=== PATIENT | female | born 1940 | race Hispanic/Latino ===

== ENCOUNTER 2018-07-20 17:13 | Inpatient (IN) | payer MEDICARE ==
[2018-07-20] MEDS ORDERED: HYDROcodone/Acetaminophen 10/325 mg Tablet PO PRN (17:43)
[2018-07-20] MEDS ORDERED: Ondansetron ODT 4 MG TAB PO PRN (17:48)
[2018-07-20] MEDS ORDERED: Guaifenesin DM 100-10/5 ML UDCUP PO PRN (17:48)
[2018-07-20] MEDS ORDERED: Zolpidem Tartrate 5 MG TAB PO PRN (17:48)
[2018-07-20] MEDS ORDERED: Loratadine 10 MG TAB PO PRN (17:48)
[2018-07-20] MEDS ORDERED: Polyethylene Glycol 3350 17 GM Packet PO PRN (17:54)
[2018-07-20] MEDS: HYDROcodone/Acetaminophen 10/325 mg Tablet PO PRN (18:15)
[2018-07-20] MEDS: Multivitamin W/ Minerals 1 TAB PO SCH (20:22)
[2018-07-20] MEDS: Docusate 100 MG CAP PO SCH (20:22)
[2018-07-20] MEDS: Melatonin 3 MG TAB PO SCH (20:22)
--- NOTE | 2018-07-20 23:43 | HP ---
DATE OF SERVICE: 07/20/2018 CHIEF COMPLAINT: Status post left knee replacement. HISTORY OF PRESENT ILLNESS: The patient is a 78-year-old female with a past medical history of diabetes, hypertension, hyperlipidemia with hypertriglyceridemia, hypothyroidism, glaucoma, and osteoarthritis, who underwent left knee replacement last week at the [facility] with Dr. Herron. The patient has had a slow recovery, hampered by pain, and decreased mobility. There was sought that the patient was not safe to go home or to transfer on her own and therefore she is here for further physical therapy. The patient complains of left knee pain that worsened in the ambulance ride over here, but notes that her pain medicine usually helps control the pain. She also has chronic back pain and has a history of having three previous back surgeries. The patient states that she has had some swelling in her left lower extremity since the surgery, but has compression, KERRY hose on both legs and that has been helping. She was treated with antibiotics following surgery with Dr. Herron, so that this can be stopped and she is using aspirin for DVT prophylaxis following surgery. PAST MEDICAL HISTORY: 1. Diabetes, the most recent A1c is 6.4. 2. Hypertension. 3. Hyperlipidemia. 4. Hypertriglyceridemia. 5. Hypothyroidism. 6. Osteoarthritis. 7. Glaucoma. PAST SURGICAL HISTORY: 1. Three previous back surgeries. 2. Six total knee surgeries between both knees with the most recent being the left knee replacement. 3. Tonsillectomy. ALLERGIES: 1. ADHESIVE TAPE. 2. VALIUM. 3. SULFA. 4. IBUPROFEN. 5. CIPRO. FAMILY HISTORY: The patient is adopted and does not know her family history. SOCIAL HISTORY: Patient was a former smoker, but quit about 30 years ago and denies alcohol use. She is and has 2 children. MEDICATIONS: 1. Metformin 500 mg p.o. q.a.m. 2. Simvastatin 20 mg p.o. at bedtime. 3. Raloxifene 60 mg p.o. at bedtime. 4. Multivitamin p.o. daily. 5. Levothyroxine 112 mcg p.o. daily. 6. Irbesartan 300 mg p.o. daily. 7. Fenofibrate 160 mg p.o. at bedtime. 8. Atenolol 25 mg p.o. daily. 9. ProAir inhaler 2 puffs q.4 hours p.r.n. shortness of breath. 10. Hydrocodone which is being given in the hospital, but I am unsure of the dose at this time. 11. Duloxetine 30 mg p.o. daily. REVIEW OF SYSTEMS: General: Negative for fever, chills, or night sweats. Vision. Negative for eye pain and redness. HEENT: Negative for sore throat, rhinorrhea, nasal congestion. Respiratory: Negative for cough, congestion, shortness of breath, and wheezing. Cardiovascular: Negative for chest pain, palpitations, orthopnea, and PND. Gastrointestinal: Negative for nausea, vomiting, and diarrhea, but patient does endorse constipation since her surgery. Genitourinary: Negative for dysuria and polyuria. Musculoskeletal: Positive for low back pain and left knee pain with decreased range of motion. Skin: Negative for rashes or lesions. Neurologic: Negative for syncope and seizure. Psychiatric: Negative for anxiety and depression. PHYSICAL EXAMINATION: VITAL SIGNS: Temperature 98.1, pulse 77, respiration rate 18, O2 sat 94% on room air, blood pressure 138/63. GENERAL: The patient is awake, alert, and oriented, in no acute distress. EYES: Pupils are equal, round, reactive to light and accommodation. Extraocular muscles are intact. HEENT: Oropharynx and nasopharynx are without erythema or exudate. NECK: Supple without lymphadenopathy, thyromegaly, or bruits. CARDIOVASCULAR: Regular rate and rhythm without murmurs, gallops, or rubs. LUNGS: Clear to auscultation bilaterally without wheezing or rhonchi. ABDOMEN: Soft, nontender, nondistended with bowel sounds present. EXTREMITIES: There is no clubbing, cyanosis, but there is trace edema in bilateral feet. MUSCULOSKELETAL: Patient has an Chet bandage wrapped around her left knee, which is tender to palpation. NEUROLOGIC: Cranial nerves II through XII are grossly intact, sensation is within normal limits. PSYCHIATRIC: Patient displays an appropriate mood and affect during the exam. ASSESSMENT AND PLAN: Patient is a 78-year-old female who is at [facility] for rehabilitation following left knee replacement. 1. Osteoarthritis, status post left knee replacement: The patient will have PT and OT consults. We will continue hydrocodone for pain as well as her duloxetine, which is what she takes at home. Patient will use ice as needed and at this point in time, as of needs assistance and anytime she tries to get up. She is not yet able to bear weight on that leg due to pain. 2. Diabetes: We will continue her metformin and do Accu-Cheks every a.c. and at bedtime. 3. Hypertension: Continue home medications and monitor blood pressure. 4. Hyperthyroidism: Continue Synthroid. 5. Hyperlipidemia: We will continue her home statin and fenofibrate. 6. Patient is on aspirin per Dr. Herron for deep venous thrombosis prophylaxis following surgery. RIKI
[2018-07-21] MEDS: Levothyroxine Sodium 100 MCG TAB PO SCH (05:19)
[2018-07-21] MEDS: HYDROcodone/Acetaminophen 10/325 mg Tablet PO PRN ×4 (05:20→20:51)
[2018-07-21 05:56] LABS: #Basophils 0.1 thou/uL (0.0-0.2); #Eosinphils 0.3 thou/uL (0.0-0.7); #Lymphocytes 2.4 thou/uL (1.20-3.40); #Monocytes 0.9 thou/uL (0.11-0.59); %Eosinophils 4.2 % (0.0-10.0); %Lymphocytes 31.4 % (21.0-51.0); %Monocytes 12.1 % (0.0-10.0); %Neutrophils 51.2 % (42.0-75.0); Hemoglobin 9.6 g/dL (12.0-16.0); Mean Corpuscular HGB CONC 31.7 g/dL (32.0-36.0); Mean Corpuscular Hemoglobin 29.4 pg (27.0-31.0); Mean Corpuscular Volume 92.6 fL (78.0-98.0); Mean Platelet Volume 6.3 fL (7.4-10.4); Platelet Count 346 thou/uL (130-400); RBC Distribution Width 12.7 % (11.5-14.5); Red Blood Cell (RBC) Count 3.27 mill/uL (4.20-5.40); White Blood Cell (WBC) Count 7.7 thou/uL (4.8-10.8)
[2018-07-21 06:00] LABS: Anion Gap 11 mmol/L (10-20); BUN (Urea Nitrogen) 23 mg/dL (9.8-20.1); Calc. Creatinine Clearance 63 mL/min (70-130); Calcium 9.2 mg/dL (7.8-10.44); Carbon Dioxide 25 mmol/L (23-31); Chloride 106 mmol/L (98-107); Estimated GFR-MDRD 64; Glucose 105 mg/dL (83-110); Potassium 4.4 mmol/L (3.5-5.1); Sodium 138 mmol/L (136-145)
[2018-07-21] MEDS: Carvedilol 25 MG TAB PO SCH ×2 (07:40→16:48)
[2018-07-21] MEDS: metFORMIN XR 500 MG TAB PO SCH (07:40)
[2018-07-21] MEDS: Docusate 100 MG CAP PO SCH ×2 (08:53→20:51)
[2018-07-21] MEDS: Fenofibrate Nanocrystallized 145 MG TAB PO SCH (08:53)
[2018-07-21] MEDS: DULoxetine 30 MG CAP PO SCH (08:53)
--- NOTE | 2018-07-21 12:22 | PRG ---
DATE OF SERVICE: 07/21/2018 SUBJECTIVE: The patient is a 78-year-old female status post left knee replacement who was admitted last night for further therapy. The patient notes pain in her leg, but she was able to get up with PT and walk to the door and back. She is also trying to ambulate to the restroom instead of using a bedside commode. PHYSICAL EXAMINATION: VITAL SIGNS: Temperature 97.8, pulse 70, respiration rate 18, O2 sat 95% on room air, blood pressure 145/68. GENERAL: The patient is awake, alert, and oriented, in no acute distress. CARDIOVASCULAR: Regular rate and rhythm without murmurs, gallops, or rubs. LUNGS: Clear to auscultation bilaterally without wheezing or rhonchi. MUSCULOSKELETAL: The left leg has an Chet wrap in place. PSYCHIATRIC: The patient displays appropriate mood and affect. LABORATORY: 1. CBC: WBCs 7.7, hemoglobin 9.6, hematocrit 30.3, platelet count 346. 2. BMP: Sodium 138, potassium 4.4, chloride 106, bicarb 25, BUN 23, creatinine 0.86, glucose 105, calcium 9.2. 3. Accu-Cheks 143, 104, 129. ASSESSMENT AND PLAN: The patient is a 78-year-old female status post left knee replacement. 1. Osteoarthritis status post left knee replacement: We will continue [place] for pain. The tramadol is not helping at all and she is allergic to NSAIDs. She will continue working with PT and OT and use ice packs as needed. 2. Anemia, likely acute secondary to blood loss from recent surgery. We will trend her blood counts and replace with iron. 3. Hypertension: Patient's blood pressure is mildly elevated, but this is likely secondary to pain. We will continue current medications and monitor. 4. Diabetes: Blood sugars have been well controlled. We will stop Accu-Cheks every a.c. and at bedtime. 5. Dr. Herron has the patient on aspirin for DVT prophylaxis following surgery. RIKI
[2018-07-21] MEDS: Calcium Carbonate + Vit D 1 TAB PO SCH (16:48)
[2018-07-21] MEDS: Simvastatin 10 MG TAB PO SCH (16:48)
[2018-07-21] MEDS: Melatonin 3 MG TAB PO SCH (20:51)
[2018-07-21] MEDS: Multivitamin W/ Minerals 1 TAB PO SCH (20:51)
[2018-07-22] MEDS: Levothyroxine Sodium 100 MCG TAB PO SCH (05:56)
[2018-07-22] MEDS: HYDROcodone/Acetaminophen 10/325 mg Tablet PO PRN ×4 (06:22→20:41)
[2018-07-22] MEDS: DULoxetine 30 MG CAP PO SCH (09:28)
[2018-07-22] MEDS: metFORMIN XR 500 MG TAB PO SCH (09:29)
[2018-07-22] MEDS: Carvedilol 25 MG TAB PO SCH ×2 (09:29→17:15)
[2018-07-22] MEDS: Fenofibrate Nanocrystallized 145 MG TAB PO SCH (09:29)
[2018-07-22] MEDS: traMADol HCl 50 MG TAB PO PRN ×2 (09:29→17:12)
[2018-07-22] MEDS: Docusate 100 MG CAP PO SCH ×2 (09:30→20:41)
[2018-07-22 14:34] VITALS: BMI 29.8
--- NOTE | 2018-07-22 17:10 | PRG ---
DATE OF SERVICE: 07/22/2018 SUBJECTIVE: The patient is a 78-year-old female who is at [facility] for rehabilita tion following a left knee replacement. The patient was moved to room since yesterday. She is start ing to stand with physical therapy and is about to start walking with them during my visit. She note s that the [place] is helping with pain and she has tramadol for breakthrough though she says it is not helping as well as she would like. OBJECTIVE: VITAL SIGNS: Temperature 97.5, pulse 79, respiration rate 18, O2 sat 93% on room air, blood pressure 136/62. GENERAL: The patient is awake, alert, and oriented, in no acute distress. CARDIOVASCULAR: Regular rate and rhythm without murmurs, gallops, or rubs. LUNGS: Clear to auscultation bilaterally without wheezing or rhonchi. ABDOMEN: Soft, nontender, nondistended. Bowel sounds present. EXTREMITIES: There is no clubbing or cyanosis. The patient does have some trace lower extremity byron ma and bandages in place on the left knee and she has KERRY hose on both legs. ASSESSMENT AND PLAN: 1. Osteoarthritis, status post left knee replacement: We will continue PT and OT. We will add Tyle nol to be taken along with her tramadol in between her [place] doses. We will make certain the patient is not exceeding 3 grams of Tylenol in a day. 2. Diabetes: Blood sugars have been stable. We will not continue Accu-Cheks at this time. 3. Anemia: We will repeat labs next week. 4. Hypertension: Continue current meds. Blood pressure has been well controlled. 5. Hypothyroidism: Continue supplementation. 6. The patient remains on aspirin for deep vein thrombosis prophylaxis.
[2018-07-22] MEDS: Acetaminophen 500 MG TAB PO PRN (17:12)
[2018-07-22] MEDS: Simvastatin 10 MG TAB PO SCH (17:13)
[2018-07-22] MEDS: Calcium Carbonate + Vit D 1 TAB PO SCH (17:13)
[2018-07-22] MEDS: Melatonin 3 MG TAB PO SCH (20:41)
[2018-07-22] MEDS: Multivitamin W/ Minerals 1 TAB PO SCH (20:41)
[2018-07-23] MEDS: HYDROcodone/Acetaminophen 10/325 mg Tablet PO PRN ×4 (02:06→18:27)
[2018-07-23] MEDS: Levothyroxine Sodium 100 MCG TAB PO SCH (05:43)
[2018-07-23] MEDS: metFORMIN XR 500 MG TAB PO SCH (08:19)
[2018-07-23] MEDS: Carvedilol 25 MG TAB PO SCH ×2 (08:19→17:05)
[2018-07-23] MEDS: DULoxetine 30 MG CAP PO SCH (08:21)
[2018-07-23] MEDS: Docusate 100 MG CAP PO SCH ×2 (08:23→21:05)
[2018-07-23] MEDS: Fenofibrate Nanocrystallized 145 MG TAB PO SCH (08:23)
[2018-07-23] MEDS: traMADol HCl 50 MG TAB PO PRN ×2 (12:30→21:05)
[2018-07-23] MEDS: Acetaminophen 500 MG TAB PO PRN ×2 (12:30→21:05)
[2018-07-23] MEDS: Simvastatin 10 MG TAB PO SCH (17:11)
[2018-07-23] MEDS: Calcium Carbonate + Vit D 1 TAB PO SCH (17:12)
[2018-07-23] MEDS: Melatonin 3 MG TAB PO SCH (21:05)
[2018-07-23] MEDS: Multivitamin W/ Minerals 1 TAB PO SCH (21:05)
[2018-07-24] MEDS: HYDROcodone/Acetaminophen 10/325 mg Tablet PO PRN ×3 (02:26→20:36)
[2018-07-24] MEDS: Levothyroxine Sodium 100 MCG TAB PO SCH (05:44)
[2018-07-24] MEDS: Carvedilol 25 MG TAB PO SCH ×2 (08:15→17:02)
[2018-07-24] MEDS: DULoxetine 30 MG CAP PO SCH (08:15)
[2018-07-24] MEDS: metFORMIN XR 500 MG TAB PO SCH (08:15)
[2018-07-24] MEDS: Fenofibrate Nanocrystallized 145 MG TAB PO SCH (08:15)
[2018-07-24] MEDS: Docusate 100 MG CAP PO SCH ×2 (08:15→20:36)
[2018-07-24] MEDS: traMADol HCl 50 MG TAB PO PRN (14:54)
[2018-07-24] MEDS: Acetaminophen 500 MG TAB PO PRN (14:54)
[2018-07-24] MEDS: Calcium Carbonate + Vit D 1 TAB PO SCH (17:02)
[2018-07-24] MEDS: Simvastatin 10 MG TAB PO SCH (17:03)
--- NOTE | 2018-07-24 17:17 | PRG ---
DATE OF SERVICE: 07/24/2018 SUBJECTIVE: The patient is a 78-year-old female status post left knee replacement, who is at [facility]. The patient has been ambulating from the bed to the bathroom with assistan ce of nursing notes that she is taking very small steps. Patient thinks that her pain is a little bi t better controlled over the weekend and denies complaints. OBJECTIVE: VITAL SIGNS: Temperature 98.0, pulse 76, respiration rate 18, O2 sat 96% on room air, and blood pres sure 154/74. GENERAL: The patient is awake, alert, and oriented, in no acute distress. CARDIOVASCULAR: Regular rate and rhythm without murmurs, gallops, or rubs. LUNGS: Clear to auscultation bilaterally without wheezing or rhonchi. ABDOMEN: Soft, nontender, nondistended with bowel sounds present. EXTREMITIES: There is no clubbing or cyanosis. The patient has KERRY hose in place in the lower extre mities with the left lower extremity swelling improved from Wednesday. She has a bandage in place over the top of her left knee incision and the KERRY hose cover that. PSYCHIATRIC: The patient displays an appropriate mood and affect. ASSESSMENT AND PLAN: 1. Osteoarthritis, status post left knee replacement: Patient will resume therapy tomorrow. We dis cussed pain control and when it is appropriate to take her pain medication. The patient is intereste d in trying to wean off of the pain medicine a little bit, but we also noted that we want her to be a ble to work with therapy and not let her pain gets to be too severe. 2. Anemia, likely secondary to recent surgery. We will repeat the patient's hemoglobin in 2 days. 3. Hypertension: The patient's blood pressure has been a little bit elevated in the past 24 hours w ith systolics in the 150s, but for the most part it is under control in the previous days. We will c ontinue to monitor and adjust medications as needed. 4. Hypothyroidism: Continue supplementation. 5. The patient's orthopedic surgeon has her on a full strength aspirin for deep vein thrombosis prop hylaxis.
[2018-07-24] MEDS: Multivitamin W/ Minerals 1 TAB PO SCH (20:36)
[2018-07-24] MEDS: Melatonin 3 MG TAB PO SCH (20:36)
[2018-07-25] MEDS: Acetaminophen 500 MG TAB PO PRN (03:05)
[2018-07-25] MEDS: traMADol HCl 50 MG TAB PO PRN ×2 (03:05→15:24)
[2018-07-25] MEDS: Levothyroxine Sodium 100 MCG TAB PO SCH (06:13)
[2018-07-25 07:25] VITALS: BP 178/78; TEMP 98.5
[2018-07-25] MEDS: Carvedilol 25 MG TAB PO SCH ×2 (08:31→16:47)
[2018-07-25] MEDS: Docusate 100 MG CAP PO SCH (08:32)
[2018-07-25] MEDS: HYDROcodone/Acetaminophen 10/325 mg Tablet PO PRN ×2 (08:32→18:06)
[2018-07-25] MEDS: metFORMIN XR 500 MG TAB PO SCH (08:32)
[2018-07-25] MEDS: DULoxetine 30 MG CAP PO SCH (08:32)
[2018-07-25] MEDS: Fenofibrate Nanocrystallized 145 MG TAB PO SCH (08:32)
--- NOTE | 2018-07-25 10:44 | PRG ---
DATE OF SERVICE: 07/25/2018 HISTORY OF PRESENT ILLNESS: The patient is a 78-year-old female who is at [facility] for rehabilitation following a left knee replacement. The patient today is sitting up in a chair a nd states that she may be transferring to inpatient rehab as it seems like her insurance may have monique roved her stay. She was initially trying to go to inpatient rehab upon leaving the [facility]; however, initially her insurance denied that and so she came to [facility]. The patient i s from [place] and lives just a few minutes away from the inpatient rehab facility. She states that kristin munoz had difficulty sleeping last night due to pain in her left knee, but otherwise is doing well. OBJECTIVE: VITAL SIGNS: Temperature 98.5, pulse 63, respiratory rate 16, O2 sat 95% on room air, blood pressure is 178/78 this morning; however, overnight it was 134/60. GENERAL: The patient is awake, alert and oriented and in no acute distress. CARDIOVASCULAR: Regular rate and rhythm without murmurs, gallops, or rubs. LUNGS: Clear to auscultation bilaterally without wheezing or rhonchi. ABDOMEN: Soft, nontender, nondistended with bowel sounds present. EXTREMITIES: There is no clubbing or cyanosis. The patient has trace lower extremity edema bilatera lly. SKIN: The patient has a bandage in place over the left knee. PSYCHIATRIC: The patient displays an appropriate mood and affect during the exam. ASSESSMENT AND PLAN: 1. Osteoarthritis, status post left knee replacement: The patient will continue PT and OT. We will follow up with the patient's insurance on whether or not she has been accepted with inpatient rehab and if so, she may be discharged later today. Continue [place] for pain control. She has tramadol for breakthrough pain. The patient is allergic to NSAIDs and had an anaphylactic reaction to ibuprofen. 2. Hypothyroidism: Continue supplementation. 3. Hypertension: The patient's blood pressure has been fluctuating, but mostly it has been controll ed. We will continue to monitor and adjust as needed. 4. Anemia: If the patient remains in the hospital she is due to recheck her blood counts tomorrow. She does get some iron with her multivitamin daily. 5. Dr. Herron has recommended continuing a full strength aspirin for DVT prophylaxis.
[2018-07-25] MEDS: Simvastatin 10 MG TAB PO SCH (16:48)
[2018-07-25] MEDS: Calcium Carbonate + Vit D 1 TAB PO SCH (16:48)
--- NOTE | 2018-07-26 05:26 | DIS ---
DATE OF DISCHARGE: 07/25/2018 DISCHARGE DIAGNOSES: 1. Status post left knee replacement. 2. Osteoarthritis. 3. Hypertension. 4. Hyperlipidemia. 5. Anemia secondary to recent surgery. DISCHARGE MEDICATIONS: 1. Tylenol 500 mg p.o. q.6. p.r.n. for pain. 2. Calcium plus vitamin D one tab p.o. daily. 3. Carvedilol 12.5 mg p.o. b.i.d. 4. Colace 100 mg p.o. b.i.d. 5. Cymbalta 60 mg p.o. q.a.m. 6. TriCor 145 mg p.o. daily. 7. Carlyle 10/325 one p.o. q.4 hours p.r.n. pain. 8. Irbesartan 300 mg p.o. q.a.m. 9. Synthroid 100 mcg p.o. q.a.m. 10. Melatonin 3 mg p.o. at bedtime. 11. Metformin XR 500 mg p.o. q.a.m. 12. Multivitamin p.o. daily. 13. MiraLax 17 grams p.o. daily p.r.n. for constipation. 14. Raloxifene 60 mg p.o. daily. 15. Simvastatin 20 mg p.o. at bedtime. 16. Tramadol 50 mg p.o. q.6 hours p.r.n. for moderate pain. 17. Ambien 5 mg p.o. at bedtime p.r.n. for insomnia. HOSPITAL COURSE: The patient is a 78-year-old female who was admitted to [facility] for rehabilitation following a left knee replacement at the [facility] with Dr. Herron. The patient has been working with physical therapy while being down here and has been doing well. The patient had been waiting on acceptance at inpatient rehabilitation while at the [facility] and did not come before she was discharged. Today we were notified that she had been accepted to inpatient rehab and seeing if the patient was from the [place] area, she elected to be transferred to inpatient rehab in [place] to be closer to home and family. The patient was continued on all of her home medications and the discharge plan was discussed with the patient. Time spent on discharge 34 minutes. DISPOSITION: 1. Transfer to inpatient rehabilitation. 2. Medications as above. 3. The patient will follow up with her PCP once discharged from inpatient rehabilitation. RIKI
== END 2018-07-25 18:05 | DRG 560 ==
LOC: NAV ACUTE 17:13
PROVIDERS: ADMIT Family Medicine; ATTEND Family Medicine
DX: Z47.1 Aftercare following joint replacement surgery (principal); D62 Acute posthemorrhagic anemia; Z96.652 Presence of left artificial knee joint; M17.12 Unilateral primary osteoarthritis, left knee; I10 Essential (primary) hypertension; E78.5 Hyperlipidemia, unspecified; E78.1 Pure hyperglyceridemia; E03.9 Hypothyroidism, unspecified; H40.9 Unspecified glaucoma; M54.9 Dorsalgia, unspecified; G89.29 Other chronic pain; Z87.891 Personal history of nicotine dependence
CPT/HCPCS: 36416; 80048; 85025